=== PATIENT | female | born 1975 | race Caucasian/White ===

== ENCOUNTER 2021-10-30 09:41 | Day surgery (SDC) | payer OTHER ==
[2021-10-26 15:40] VITALS: BMI 27.9
[2021-10-30 11:02] VITALS: TEMP 98.2
[2021-10-30 11:27] VITALS: BP 110/72; PULSE 65
== END 2021-10-30 11:30 | disposition home or self-care (01) ==
LOC: FASU-ENDO 09:41
PROVIDERS: ATTEND Internal Medicine Gastroenterology
PROC: 0DB68ZX Excision of Stomach, Via Natural or Artificial Opening Endoscopic, Diagnostic (ICD-10-PCS; 2021-10-30)
PROC: 0DB48ZX Excision of Esophagogastric Junction, Via Natural or Artificial Opening Endoscopic, Diagnostic (ICD-10-PCS; 2021-10-30)
PROC: 0DB98ZX Excision of Duodenum, Via Natural or Artificial Opening Endoscopic, Diagnostic (ICD-10-PCS; principal; 2021-10-30 10:41)
DX: K29.50 Unspecified chronic gastritis without bleeding (principal); K29.80 Duodenitis without bleeding; K20.90 Esophagitis, unspecified without bleeding; R10.13 Epigastric pain
CPT/HCPCS: 84703; 88305-TC; 88342-TC

== ENCOUNTER 2022-06-01 12:00 | Day surgery (SDC) | payer OTHER ==
[2022-05-28 14:23] VITALS: BMI 26.6
[2022-06-01 12:57] VITALS: TEMP 97.8
[2022-06-01] MEDS ORDERED: PROPOFOL 40 ML ONE (13:22)
[2022-06-01] MEDS ORDERED: IBUPROFEN 400 MG TABLET (FP) PO ONE (14:35)
[2022-06-01] MEDS ORDERED: IBUPROFEN 600 MG TABLET (FP) PO ONE (14:35)
[2022-06-01 14:49] VITALS: RESP 18
[2022-06-01 14:53] VITALS: BP 121/66; PULSE 61
== END 2022-06-01 14:45 | disposition home or self-care (01) ==
LOC: FASU-ENDO 12:00
PROVIDERS: ATTEND Internal Medicine Gastroenterology
PROC: 0DJD8ZZ Inspection of Lower Intestinal Tract, Via Natural or Artificial Opening Endoscopic (ICD-10-PCS; principal; 2022-06-01 13:38)
DX: Z12.11 Encounter for screening for malignant neoplasm of colon (principal); K64.1 Second degree hemorrhoids
CPT/HCPCS: 81025